=== PATIENT | female | born 1980 | race Caucasian/White ===

== ENCOUNTER 2024-08-10 15:08 | Outpatient (CLI) | payer BC, SELFPAY ==
--- NOTE | 2024-08-10 15:30 | CRLHL7_ITS ---
For Patients: As a result of the Century Cures Act, medical imaging exams and procedure reports are released immediately into your electronic medical record. You may view this report before your referring provider. If you have questions, please contact your health care provider. Indication: Neck pain. Headaches. TECHNIQUE: Noncontrast sagittal T1, T2, STIR and axial GRE sequences are provided. No comparisons. FINDINGS: The overall stature, alignment and intrinsic marrow signal of the cervical spine is within normal limits. Cervical cord is normal. C2-3, C3-4, C4-5: Unremarkable. C5-6: Minor posterior disc bulge effaces the ventral thecal sac but results in no significant central canal or foraminal narrowing. C6-7: Mild broad-based posterior disc bulge results in mild contact of the ventral cord with [id number] central canal narrowing. No left foraminal narrowing. There is a superimposed 3-4 millimeter right intraforaminal disc protrusion resulting in severe right foraminal narrowing with compression of the exiting right C7 nerve root. C7-T1: Unremarkable. IMPRESSION: 1. Discogenic degenerative changes at C6-7 resulting in [id number] central canal narrowing and severe right foraminal narrowing with compression of the exiting right C7 nerve root. 2. Minor discogenic degenerative change at C5-6 resulting in no central canal or foraminal narrowing. Dictated by Seun Jiménez MD @ 08/10/2024 4:29:02 PM (Electronically Signed)
== END 2024-08-10 15:09 | disposition home or self-care (01) ==
LOC: MRI 15:10
PROVIDERS: Visit Provider Family Medicine
DX: M54.2 Cervicalgia (principal); M50.823 Other cervical disc disorders at C6-C7 level; R51.9 Headache, unspecified; M54.12 Radiculopathy, cervical region
CPT/HCPCS: 72141

== ENCOUNTER 2024-11-09 13:45 | Outpatient (RCR) | payer BC, SELFPAY | END 2024-12-10 10:47 | disposition home or self-care (01) | PROVIDERS: PCP Physician Assistant Surgical; Visit Provider Physician Assistant Surgical | DX: M54.12 Radiculopathy, cervical region (principal); Z51.89 Encounter for other specified aftercare | CPT/HCPCS: 97110; 97140; 97161 ==